=== PATIENT | female | born 1980 | race Two or more races ===

== ENCOUNTER 2024-04-15 03:12 | Emergency (ER) | payer BC ==
[~2024-04-15] VITALS: Ht 157.5 cm; Wt 53.1 kg
[2024-04-15] MEDS ORDERED: CYCL5TAB PO (04:10)
[2024-04-15 04:56] VITALS: BP 118/71; O2SAT 97
== END 2024-04-15 04:14 | disposition home or self-care (01) ==
LOC: ER 03:21
DX: M54.16 Radiculopathy, lumbar region (principal); M54.6 Pain in thoracic spine; Z79.899 Other long term (current) drug therapy
CPT/HCPCS: A4606; A4663